=== PATIENT | male | born 1950 | race African-American/Black ===

== ENCOUNTER 2025-04-28 15:45 | Emergency (ER) | payer MEDICARE, SELFPAY ==
[2025-04-28 15:52] VITALS: BP 167/84
--- NOTE | 2025-04-28 18:53 | ED.GENMED ---
History of Present Illness
General
Chief Complaint: Back Pain
Source: patient
Exam Limitations: none
Time Seen by Provider: 04/28/25 18:46
Nursing documentation reviewed up to this point in time: agreed with
History of Present Illness
History of Present Illness:
Note:
CHIEF COMPLAINT(S)
Back pain with numbness
HISTORY OF PRESENT ILLNESS
The patient is a 74-year-old male with a pmh of BPH on cialis, herniated discs, HTN, presenting with low back pain with intermittent numbness and tingling going into the bilateral lower extremities. He states that this feels similar to his symptoms
he had when he had a herniated disc. This episode of pain started around March 29 and is localized to the lumbar region, around L5. The patient has a history of back injury approximately 15 years ago. The pain is described as severe and sharp,
particularly on walking and affects the lower back. It is partially relieved by sitting in a reclining chair. The patient reports numbness and tingling that started in the fingertips and now involves the entire hand and travels up the arm. This is
intermittent. It is associated with intermittent neck pain. The patient notes chronic issues with urinary incontinence and dribbling and was started on cialis for this by his prior doctor in [place]--he feels as though the past few weeks he has
had increasing episodes of dribbling. He denies constipation, inability to ambulate, saddle paresthesias.
He denies abdominal pain, dizziness, fevers or chills.
Patient reports that he does have a history of neuropathy and his lower extremities which were previously attributed to his chronic edema and peripheral vascular disease.
PHYSICAL EXAM
General: Patient is well appearing and in no acute distress; non-toxic
Skin: Warm and dry, no rashes or lesions
Head: Normocephalic, atraumatic
Eyes: Sclera non-icteric. EOMs intact.
Cardiac: Regular rate
Peripheral Vascular: 2+ DP pulses b/l.
Pulm: Normal respiratory effort
Abdomen: No abdominal tenderness, no pulsatile abdominal mass
Musculoskeletal: No midline cervical spinal tenderness. Full ROM of cervical spine. 5/5 strength in bilateral upper and lower extremities.
Neuro: CN II-XII intact, no focal neurologic deficits. Sensation intact in bilateral upper and lower extremities. Normal gait.
Psychiatric: Appropriate mood and affect.
PAST MEDICAL AND SURGICAL HISTORY
History of low back injury approximately 15 years ago.
[employer]
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
He reports that he was on his feet a lot recently.
PLAN
-check CT cervical spine in light of intermittent neck discomfort and upper extremity paresthesias
- X-rays of thoracic and lumbar spine
- post void residual
DIFFERENTIAL DIAGNOSIS
The Differential Diagnosis includes, in no particular order and is not limited to:
- Herniated lumbar disc
- Lumbar spinal stenosis
- Cervical radiculopathy
- Cauda equina syndrome
- Diabetic neuropathy
- Peripheral neuropathy
- Urinary tract infection with secondary neuropathy
- Vascular claudication
- Ankylosing spondylitis
- Multiple sclerosis
SUMMARY OF ENCOUNTER
74-year-old male presents to the ER today with concerns of a month of back pain as well as paresthesias in his bilateral upper and lower extremities. These paresthesias come on intermittently. He has no history of diabetes but has had history of
paresthesias in the lower extremity for some time now but has never experienced intermittent numbness and tingling in his upper extremities. He also has had been experiencing some intermittent neck pain. He reports his back pain feels like when he
had a herniated disc in the past. He recently moved from [place] and currently does not have a orthopedist. He is seeing his new primary care provider on May.06.
On physical exam, patient is very well-appearing in no acute distress. He has 5 out of 5 strength in his bilateral upper and lower extremities and sensations intact bilaterally. He has demonstrated a normal steady gait with the use of his cane.
He has no midline spinal tenderness. Patient did mention that he was having intermittent episodes of urinary incontinence and dribbling but this has been going on for a month and he has a known history of prostatic hypertrophy. He denies any new
onset constipation, denies any saddle paresthesias. Initial postvoid residual demonstrated 230 mL in the urinary bladder however this was done around 30 minutes after he used the bathroom. Repeat postvoid residual immediately after patient use the
bathroom demonstrates a post void within the 80s. Suspect his symptoms related to chronic prostatic hyperplasia.
No concern for cauda equina syndrome at this time. Patient is comfortable in the ER and declined Toradol for pain management. X-rays showed degenerative disc disease and to space narrowing as well as disc space narrowing within the cervical spine.
Suspect degree of spinal stenosis. Will initiate course of steroids. Patient has close follow-up with his primary care provider coming up, referral for provided for orthopedics. Patient stable for discharge. Discussed tricked return precautions.
MEDICATION RECONCILIATION
The patient is currently taking tadalafil for urinary symptoms which has shown benefit previously. No aspirin use was reported, despite previously being noted in the chart.
MEDICAL DECISION MAKING
- Number and Complexity of Problems Addressed: Chronic conditions affecting care including past back injury and urinary incontinence. Differential diagnoses as listed above.
- Data:
Category 1: A CT scan of the neck is planned, with consideration for an MRI if possible in the emergency department setting.
- Risk:
Consideration of Admission/Observation: Escalation of care including admission/observation was considered given the complexity and risk of the patients presenting complaint, exam findings, and/or their underlying comorbidities. However, ultimately I
feel the patient is safe for outpatient management with close follow-up. Reasoning: Work-up reassuring, does not reveal any acute life/organ-threatening processes, patients symptoms well-controlled upon reevaluation, reexamination is reassuring,
vitals are stable, patient agreeable with discharge, reliable for follow-up.
DIAGNOSIS
- Degenerative disc disease
Phy Exam
Physical Exam
Physical Exam:
see hpi
Course
Orders/Labs/Results
Orders:
Orders
04/28/25 19:28
CT Cervical Spine W/o Iv Contr Urgent
Comment:
Reason For Exam: neck pain, upper extremity paresthesias
Bladder Scan- Treatment ONCE
CR Lumbar Spine 2 Or 3 Views Urgent
Comment:
Reason For Exam: back pain
CR Thoracic Spine 3 Views Urgent
Comment:
Reason For Exam: back pain
04/28/25 21:43
Prednisone [Deltasone] 50 mg PO NOW STA
Vital Signs
Initial and Last Documented VS:
Initial Vital Signs
Temp Pulse Resp BP Pulse Ox
98.7 F 77 16 167/84 97
04/28/25 15:52 04/28/25 15:52 04/28/25 15:52 04/28/25 15:52 04/28/25 15:52
Last Documented Vital Signs
Temp Pulse Resp BP Pulse Ox
98.7 F 75 18 136/79 98
04/28/25 15:52 04/28/25 21:56 04/28/25 21:56 04/28/25 21:56 04/28/25 21:56
*Pulse Oximetry
SaO2: 97
Oxygen Mode of Delivery: Room air
Patient hypoxic: no
*Critical Care Note
Total Time (30-74mins, 75-104mins- exclusive of procedures): Not Applicable
ED Attending Note
-
Portions of this chart may have been created with voice recognition software.� Occasional wrong word or��sound alike� substitutions may have occurred due to the inherent limitations of voice recognition software.
Discharge Plan
Departure
Patient Disposition: Home (Routine Discharge)
Date of Disposition: 04/28/25
Time of Disposition: 22:04
Patient with high blood pressure during this ER visit?: Yes
Condition: Good
Discharge Problem:
Degenerative disc disease, Spinal stenosis
Instructions: Low Back Pain (DC), Radiculopathy (DC), BLOOD PRESSURE
Prescriptions:
New
prednisone 50 mg tablet
50 mg PO DAILY 4 Days Qty: 4 0RF
No Action
sennosides [senna] 1 TABLET tablet
1 tab PO BID Qty: 0 0RF
acetaminophen 325 MG tablet
650 mg PO Q4HWA Qty: 0 0RF
polyethylene glycol 3350 17 GRAMS powder in packet
17 grams PO DAILY Qty: 0 0RF
tramadol 50 MG tablet
50 mg PO TID PRN (Reason: mild pain) Qty: 75 0RF
Rx Instructions:
sx joint replacement
famotidine 20 MG tablet
20 mg PO HS Qty: 0 0RF
aspirin 325 MG tablet,delayed release (DR/EC)
325 mg PO BID Qty: 0 0RF
Rx Instructions:
w food
bisacodyl [OneLAX Bisacodyl] 10 MG suppository
10 mg GA DAILYPRN PRN (Reason: constipation) Qty: 0 0RF
docusate sodium 100 MG capsule
100 mg PO BID Qty: 0 0RF
bisacodyl 5 MG tablet,delayed release (DR/EC)
10 mg PO DAILYPRN PRN (Reason: constipation) Qty: 0 0RF
oxycodone 5 MG tablet
5 mg PO Q4HPRN PRN (Reason: moderate-severe pain) Qty: 75 0RF
Rx Instructions:
DX joint replacements
lisinopril 20 MG tablet
20 mg PO DAILY Qty: 0 0RF
Patient Comments:
held due to hypotension
Rx Instructions:
rssume only when primary care Dr advises
hydrochlorothiazide 12.5 MG tablet
12.5 mg PO DAILY Qty: 0 0RF
Patient Comments:
held due to hypotension
Rx Instructions:
resume only when primary care Dr advises
Referrals:
Aris Burleson DO [Non-Admitting Privileges, Orthopedics] - Call in 1-3 days for appt
Apolinar Rangel DO [Family Provider, Family Practice]
Activity Restrictions/Additional Instructions:
Prednisone has been sent to her pharmacy. You received your first dose today. Please take 50 mg once daily for 4 additional days. Please continue monitor your symptoms. Please follow-up with your primary care provider as scheduled.
Please call attached number to schedule appointment with orthopedics.
PLEASE RETURN TO THE ER RIGHT AWAY IF YOU DEVELOP INABILITY TO AMBULATE, CONSTIPATION, NUMBNESS OR TINGLING IN GENITAL REGION, ABDOMINAL PAIN. FEVERS, OR ANY OTHER SIGNS OR SYMPTOMS CONCERNING TO YOU!
Interventions
Interventions:
*General Assessment Last Done: 04/28/25 19:37
*Neglect/Abuse Screening Last Done: 04/28/25 15:52
*ED COVID-19 Vaccine History Last Done: 04/28/25 19:37
*ED Influenza Vaccine History Last Done: 04/28/25 19:37
[facility] Risk Assessment Tool Last Done: 04/28/25 19:39
*Risk Screen - Suicide (C-SSRS) Last Done: 04/28/25 15:52
*Nursing Disposition Last Done: 04/28/25 22:23
ED-Musculoskeletal Assessment Last Done: 04/28/25 19:38
Discharge Date and Time
Discharge Date/Time: 04/28/25 22:24
Print Language: ESTONIAN
[2025-04-28] MEDS: DELTASONE 50 MG PO (21:51)
[2025-04-28 21:56] VITALS: BP 136/79
== END 2025-04-28 22:24 | disposition home or self-care (01) ==
LOC: EMR 15:45
PROVIDERS: EMERGENCY PHYSICIAN Student in an Organized Health Care Education/Training Program; FAMILY PHYSICIAN Family Medicine
DX: M51.360 Other intervertebral disc degeneration, lumbar region with discogenic back pain only (principal); M48.061 Spinal stenosis, lumbar region without neurogenic claudication; M51.370 Other intervertebral disc degeneration, lumbosacral region with discogenic back pain only; I10 Essential (primary) hypertension; I73.9 Peripheral vascular disease, unspecified; N40.1 Benign prostatic hyperplasia with lower urinary tract symptoms; N39.43 Post-void dribbling; G62.9 Polyneuropathy, unspecified; Z87.828 Personal history of other (healed) physical injury and trauma
CPT/HCPCS: 99284; 72072; 72100; 72125